=== PATIENT | male | born 1930 | race Caucasian/White ===

== ENCOUNTER 2018-07-28 06:11 | Inpatient (IN) | payer OTHER, BC ==
[~2018-07-28] VITALS: Ht 170.2 cm; Wt 79.4 kg
[~2018-07-28 06:11] MED LIST: ARICEPT 5 MG TAB5 MG PO; COUMADIN 5 MG TA5 M1 PO; EUCERIN CALM I200 M1 TOP; FLOMAX0.4 MG PO; LIDOCAINE PAIN1 EACH TOP; NORVASC5 M1 PO; PHILLIPS' LAXA100 MG PO; PREDNISONE 5 MG5 M1 PO; PROSCAR 5MG TABL5 MG PO
[2018-07-28 09:30] LABS: HEMATOCRIT 42.8 % (42.0-52.0); HEMOGLOBIN 14.4 gm/dL (14.0-18.0); MCH 32.1 pg (26.0-34.0); MCHC 33.5 g/dL (28.0-37.0); MCV 95.9 fL (80.0-100.0); RBC 4.47 mil/uL (4.50-6.00); RDW 16.9 % (10.5-14.5); WBC 6.7 thou/uL (4.0-11.0)
[2018-07-28 09:31] LABS: URINE BILIRUBIN NEGATIVE (Negative); URINE BLOOD TRACE (Negative); URINE CLARITY CLEAR; URINE COLOR YELLOW; URINE GLUCOSE-RANDOM* NEGATIVE (Negative); URINE KETONES NEGATIVE (Negative); URINE LEUKOCYTES-REFLEX NEGATIVE (Negative); URINE NITRITE-REFLEX NEGATIVE (Negative); URINE PROTEIN (DIPSTICK) NEGATIVE (Negative); URINE UROBILINOGEN 0.2 E.U./dl (0.2-1.0)
[2018-07-28 09:40] LABS: ALBUMIN 3.7 g/dL (3.4-5.0); CALCIUM 10.5 mg/dL (8.5-10.1); CREATININE 1.7 mg/dL (0.7-1.3); POTASSIUM 3.9 mmol/L (3.5-5.1)
[2018-07-28 09:42] LABS: INR 2.5; PROTIME 25.6 Seconds (9.3-11.4)
[2018-08-05 09:47] LABS: PROTIME 10.7 Seconds (9.3-11.4)
[2018-08-05 16:15] VITALS: BP 120/83
[2018-08-05 16:30] VITALS: BP 115/73
[2018-08-05 17:00] VITALS: BP 115/73
--- NOTE | 2018-08-05 18:42 | NUR ---
PATIENT ADMITTED TO UNIT FROM PACU POST SURGICAL REPLACEMENT OF RIGHT HIP. HE DENIES PAIN AT THIS TIME. ABDUCTOR PILLOW PLACED TO PREVENT LEG CROSSING. PATIENT IS ALERT ORIENTED X4. RESPIRATIONS ARE NON LABORED. SON WAS IN ROOM WITH PATIENT. WILL CONT TO MONITOR AND ASSIST NEEDED.
[2018-08-05 20:25] VITALS: BP 134/99
--- NOTE | 2018-08-05 21:37 | NUR ---
Assumed care at 1845. Pt resting in bed. Denies pain. Surgical site on right hip CDI. Pt is on 2L NC. VSS. Breathing is unlabored. No sign of perfussion compromise on right leg. Pt AOX4. No identified need at the moment. Will continue to monitor.
[2018-08-05 23:50] VITALS: BP 128/74
[2018-08-06 04:15] VITALS: BP 142/92
[2018-08-06 05:36] LABS: HEMATOCRIT 33.7 % (42.0-52.0); HEMOGLOBIN 11.5 gm/dL (14.0-18.0); MCH 32.6 pg (26.0-34.0); MCHC 34.1 g/dL (28.0-37.0); MCV 95.8 fL (80.0-100.0); RBC 3.51 mil/uL (4.50-6.00); RDW 16.3 % (10.5-14.5); WBC 13.3 thou/uL (4.0-11.0)
[2018-08-06 08:05] VITALS: BP 142/70
[2018-08-06 08:13] VITALS: BP 142/70
--- NOTE | 2018-08-06 12:28 | NUR ---
DISCHARGE PLANNING. PATIENT POST OP FOR RIGHT TOTAL HIP ARTHROPLASTY. POST ACUTE CARE RECOMMENDED AT DISCHARGE ONCE MEDICALLY READY. REFERRAL FAXED TO [facility] PROTOTYPE TECHNICIAN FOR REVIEW. LAUREN AWARE OF PATIENTS DISCHARGE NEEDS AND WILL REVIEW REFERALL. LAUREN TO CONTACT CM ONCE REFERRAL REVIEW COMPLETE. FOLLOWING TO ASSIST WITH DC NEEDS.
[2018-08-06 12:46] VITALS: BP 101/49
--- NOTE | 2018-08-06 14:49 | NUR ---
care of pt assumed this am @ 0700. pt resting quietly and comfortably in bed. pt has denied co pain, no co rt hip pain, no n/v/d and no soa today. pt w/ a healthy appetite for food and fluid. pt completed his 2nd ivf liter bag this early afternoon, w/ good po fluid intake. pt seen by pt (x2) and ot today. pt ambulating w/ x1 sba in hallway and up to chair for ~ 4 hours thus far today. pt w/ adb pillow while in bed. flor avila on. pt's son at mid afternoon visiting. senior suites inquiring about a potential tx of pt later today.
--- NOTE | 2018-08-06 16:01 | O ---
[facility] [place] [address] [address]PERATIVE REPORT Name: L[address]O Room #: 364-P [facility] M.R.#: [id number] Admission: 08/05/18 ������������������ Attend Phys: Immanuel Calderon MD Discharge: ������������������ Date of : 32 Report #: [id number] THIS REPORT FOR: //name// CC: ADEN TRUJILLO Physician staff Immanuel Calderon DATE OF SERVICE: 08/05/2018 PREOPERATIVE DIAGNOSIS: Right hip stage 4 avascular necrosis. POSTOPERATIVE DIAGNOSIS: Right hip stage 4 avascular necrosis. PROCEDURE: Right total hip arthroplasty. SURGEON: Immanuel Calderon MD. ELECTRIC BLASTING CAP ASSEMBLER: Kalina Winters PA-C. INDICATION FOR ELECTRIC BLASTING CAP ASSEMBLER: Throughout the case, extensive retraction and manipulation of the hip was required including dislocation and reduction. This was afforded to me by my orthotic assistant. ANESTHESIA: LMA. IMPLANTS: [employer] size 15 high offset Synergy press fit stem, a size 56 R3 acetabular cup with 2 acetabular screws and a size 40+8 cobalt chrome head. ESTIMATED BLOOD LOSS: 100 mL. COMPLICATIONS: None. SPECIMENS: None. CONDITION UPON LEAVING THE OPERATING ROOM: Stable. INDICATION FOR PROCEDURE: The patient is an 87-year-old gentleman with avascular necrosis of the femoral head. He had femoral head collapse and arthritic change making stage 4 avascular necrosis. After discussion with him, he elected for right total hip arthroplasty. DESCRIPTION OF PROCEDURE: Risks, benefits, alternatives, complications were discussed in detail with the patient included but not limited to risk of anesthesia, risk of damage to nerves, arteries, blood vessels, risk for infection, bleeding, risk for continued hip pain, leg length discrepancy, [facility] [address] [place] [address] OPERATIVE REPORT Name: L[address] M[address]O Room #: 364-P [facility] IN M.R.#: [id number] Admission: 08/05/18 ������������������ Attend Phys: Immanuel Calderon MD Discharge: ������������������ Date of : 31 Report #: [id number] instability and need for reoperation. Informed consent was obtained from the patient. The right hip was appropriately marked in the preoperative holding area. IV Ancef was given for preoperative antibiotics. He was brought to the operating room and placed in the supine position on the operating room table. General anesthesia was induced without complication. He was then placed in the left lateral decubitus position with the right hip uppermost. Right hip and lower extremity were prepped and draped in normal sterile fashion. Timeout was performed properly identifying the patient and procedure as well as the instrumentation and implants. All in the operating room were in agreement. Standard posterior approach to the hip was made with 10 blade through the skin. Dissection was taken down to the fascia with Bovie cautery and a Francisco elevator was used to clean the fascia. Fresh 10 blade was used to make a fascial incision. This was taken proximally and distally with curved Houser scissor. Charnley retractor was placed. Trochanteric bursa was taken down with Bovie cautery. Piriformis tendon was identified, tagged and taken down with Bovie. Short external rotators were also taken down with Bovie cautery. Capsulotomy was made and capsule ends were tagged for later repair. The hip was dislocated. There was an obvious stage 4 avascular necrosis of the femoral head. Femoral neck cut was made 1 cm proximal to lesser trochanter based on preoperative templating and the femoral head was removed. Deep acetabular retractors were placed and the labrum was removed sharply. Pulvinar was removed with Bovie cautery. Acetabulum was sequentially reamed up to a size 56, at which point, there was excellent bleeding cancellous bone. This was trialed with a size 55 cup and found to have a good fit. A final size 56 R3 acetabular cup was placed and seated. Two acetabular screws were placed for backup fixation and a polyethylene liner for a size 40 head was placed. Attention was then turned to the femur. This was reamed and broached up to a size 15, at which point, we found 15 broach was stable. This was trialed with a 40+0 head. Hip was reduced, taken through range of motion, found to have instability posteriorly as well as short leg on the right compared to the left. It was felt we could make up for this with the final implant. Hip was dislocated. The broach was removed and a final size 15 high offset Synergy press fit stem was placed. This was then trialed with a +4 and then a +8 size 40 head. Hip was reduced, taken through range of motion, found to be stable, found to have equal leg lengths. Hip was dislocated one last time and the trial head was removed and final size 40+8 cobalt chrome head was placed. Hip was reduced, taken through range of motion, found to be stable, found to have equal leg lengths. Periarticular injection consisting of morphine, ropivacaine, epinephrine and Toradol was placed around the hip joint capsule. A gram of vancomycin was placed deep in the joint. The capsule and piriformis were repaired with 0 FiberWire. Fascia was closed with 0 Vicryl, skin was closed with 2-0 Vicryl and 3-[address] [address] [address]PERATIVE REPORT Name: L[address] MORILLO Room #: 364-P [facility] IN M.R.#: [id number] Admission: 08/05/18 ������������������ Attend Phys: Immanuel Calderon MD Discharge: ������������������ Date of : 31 Report #: [id number] Dermabond and a KAE dressing was applied. The patient tolerated this procedure well and went to the recovery room under the care of Anesthesia postoperatively. ��������������������������������������������� <ELECTRONICALLY SIGNED> ���������������������������������������� By: Immanuel Calderon MD ��������������������������������������������� 08/06/18 1601 1211 1233 Immanuel Calderon MD /nt
[2018-08-06 19:05] VITALS: BP 149/78
[2018-08-06 23:46] VITALS: BP 149/78
--- NOTE | 2018-08-07 03:09 | NUR ---
ASSUMED CARE OF PATIENT AT 1845. DURING ASSESSMENT WE DISCUSSED PAIN AND USING THE MEDICATION TO STAY AHEAD OF THE PAIN CURVE. PT DRESSING C/D/I. PT WAS IN BED READY TO SLEEP AT 1999. ABUDUCTOR PILLOW PUT IN PLACE. ONLY REQUEST FROM PT WAS A URINAL WITH A LID. HOURLY ROUNDING AND BED IN LOW POSITION.
[2018-08-07 03:42] VITALS: BP 106/54
[2018-08-07 04:40] LABS: HEMATOCRIT 31.3 % (42.0-52.0); HEMOGLOBIN 10.7 gm/dL (14.0-18.0); MCH 32.9 pg (26.0-34.0); MCHC 34.3 g/dL (28.0-37.0); MCV 96.1 fL (80.0-100.0); RBC 3.26 mil/uL (4.50-6.00); RDW 16.2 % (10.5-14.5); WBC 8.9 thou/uL (4.0-11.0)
[2018-08-07 04:41] LABS: INR 1.1; PROTIME 11.2 Seconds (9.3-11.4)
[2018-08-07 07:07] VITALS: BP 137/82
--- NOTE | 2018-08-07 10:38 | NUR ---
chart review, cm visited with pt at bedside. he up in recliner chair. intro to cm, dcp, and transition of care, post acute and hh. pt is a & o x 3, with some forgetfulness, pleasant and [place]. pt reported " live in house 2 steps to enter, have cane, waker, grab bars. don't cook i have meals on wheels. manage own medication in pill box. [facility] and will not return. i [facility] before go home. will need 3 midnight prior to going to skilled rehab, earliest could go tomorrow if ordered for dc. cm team sent updated clinical/referral to [facility] [phone] to call report, fax dc order to [phone]
--- NOTE | 2018-08-07 12:43 | NUR ---
care of pt assumed this am @ ~0700. pt awake, alert and cooperative this am to get out of bed, ambulate to the bthrm and sit up in his chair for breakfast. pt and ot at to work w/ pt this am. pt has denies any co pain to his rt hip area today. pt denies n/v/d, he is a bit concerned about constipation. pt denies soa, on room air. states pt will go to [facility] for rehab after completing 3 night stays post op and the approval/discharge by dr. zuniga. pt made aware of these furture discharge plans.
[2018-08-07 15:00] VITALS: BP 128/60
[2018-08-07] MEDS ORDERED: HYDROCODON-ACE1 EAC7 PO (16:38)
[2018-08-07 20:05] VITALS: BP 120/60
[2018-08-08 04:34] VITALS: BP 139/75
[2018-08-08 05:01] LABS: HEMATOCRIT 31.3 % (42.0-52.0); HEMOGLOBIN 10.8 gm/dL (14.0-18.0); MCH 32.8 pg (26.0-34.0); MCHC 34.5 g/dL (28.0-37.0); MCV 95.2 fL (80.0-100.0); RBC 3.29 mil/uL (4.50-6.00); RDW 16.6 % (10.5-14.5); WBC 8.3 thou/uL (4.0-11.0)
--- NOTE | 2018-08-08 06:38 | NUR ---
Pt. up in the chair at then ambulated to bathroom using walker. Slept intermittently in between going to bathroom. Laxative given yesterday , just passing gas no bm during the night. Right hip incision with KAE dressing intact. Denies any pain. Tolerating RA well , encouraged use of IS and got up 1500 ml. SCD's and wedge abductor in place. Making progress towards care plan goals.
[2018-08-08 07:10] VITALS: BP 167/77
[2018-08-08 07:34] LABS: INR 1.2; PROTIME 12.4 Seconds (9.3-11.4)
[2018-08-08 09:33] VITALS: BP 167/77
--- NOTE | 2018-08-08 14:03 | NUR ---
ASSUMED PATIENT CARE AT 0700. A/O X4. DENIES PAIN. UP WALK WITH PT. PROGRESSING TOWARDS POC GOALS. WILL DC TO SNF AT 1400
--- NOTE | 2018-08-08 16:27 | NUR ---
DISCHARGE NOTE: SW reviewed chart. Pt is medically stable for discharge to [facility] today. space planner coordinated. No additional SW needs identified at this time, but is available to assist should needs arise.
== END 2018-08-08 14:30 | DRG 470 ==
LOC: PRE 06:11 → TBA 06:11 → 3W 08-05 05:30 → TBA 08-05 05:30 → PRE 08-05 06:27 → 3W 08-05 15:43
PROVIDERS: Anesthesiology; ADMIT Orthopaedic Surgery
PROC: 0SR901A Replacement of Right Hip Joint with Metal Synthetic Substitute, Uncemented, Open Approach (ICD-10-PCS; principal; 2018-08-05)
DX: M87.851 Other osteonecrosis, right femur (principal); Z79.899 Other long term (current) drug therapy; Z28.21 Immunization not carried out because of patient refusal
CPT/HCPCS: 10779; 50010; 50101; 50382; 50414; 53000; 53078; 53367; 54118; 56524; 56527; 56528; 56530; 57095; 57103; 62110; 62900; 70005

== ENCOUNTER → 2018-07-30 | Outpatient (CLI) | payer OTHER, BC ==
--- NOTE | 2018-07-30 11:51 | 2DMMODE ---
[facility] [place] [address] 2 D/M-MODE ECHOCARDIOGRAM Name: L[address] M[facility]ILLO [facility]: [id number] ������������� Admission: 07/30/18 ������������� Attend Phys: Jose Roland Discharge: ��� ������������� ��� Date of : 32 Date of Service: 07/30/18 1150 �� Report #: [id number] �������� ��������������������������������������������[id number] THIS REPORT FOR: //name// APPROVED REPORT Study performed: 07/30/2018 10:15:08 EXAM: Comprehensive 2D, Doppler, and color-flow Echocardiogram Patient Location: Out-Patient Room #: Echo lab 2 Status: routine BSA: 1.93 HR: 61 bpm BP: 140/82 mmHg Rhythm: NSR Other Information Study Quality: Adequate Indications Pre-Op Hypertension/HDD 2D Dimensions RVDd: 29.34 mm IVSd: 11.72 (7-11mm) LVOT Diam: 21.97 (18-24mm) LVDd: 53.44 mm PWd: 12.14 (7-11mm) Ascending Ao: 30.29 (22-36mm) LVDs: 36.39 (25-40mm) Aortic Root: 30.04 mm Volumes Left Atrial Volume (Systole) Single Plane 4CH: 73.34 mL Single Plane 2CH: 69.49 mL LA ESV Index: 40.00 mL/m2 Aortic Valve AoV Peak Naga.: 1.13 m/s AO Peak Gr.: 5.14 mmHg LVOT Max P.70 mmHg LVOT Max V: 0.82 m/s TRACY Vmax: 2.75 cm2 Mitral Valve E/A Ratio: 0.7 MV Decel. Time: 403.[address] [facility] [address] [place] [address] 2 D/M-MODE ECHOCARDIOGRAM Name: L[address]O Room #: [facility]#: [id number] ������������� Admission: 07/30/18 ������������� Attend Phys: Jose Roland Discharge: ��� ������������� ��� Date of : 32 Date of Service: 07/30/18 1150 �� Report #: [id number] �������� ��������������������������������������������[id number] E Max Naga.: 0.56 m/s MV A Naga.: 0.84 m/s MV PHT: 117.02 ms IVRT: 193.77 ms Pulmonary Valve PV Peak Naga.: 0.80 m/s PV Peak Gr.: 2.59 mmHg Pulmonary Vein P Vein S: 0.28 m/s P Vein A: 0.20 m/s P Vein D: 0.17 m/s P Vein A Dur.: 138.4 msec P Vein S/D Ratio: 1.65 Tricuspid Valve TR Peak Naga.: 2.36 m/s TR Peak Gr.: 22.23 mmHg PA Pressure: 22.00 mmHg Left Ventricle The left ventricle is normal size. There is normal LV segmental wall motion. Mild concentric left ventricular hypertrophy. The left ventricular systolic function is normal. The left ventricular ejection fraction is within the normal range. LVEF is 50-55%. Grade I - abnormal relaxation pattern. Right Ventricle The right ventricle is normal size. The right ventricular systolic function is normal. Atria Left atrium is dilated. The right atrium size is normal. Aortic Valve The aortic valve is normal in structure. Mild aortic regurgitation. There is no aortic valvular stenosis. Mitral Valve The mitral valve is normal in structure. There is no mitral valve regurgitation noted. No evidence of mitral valve stenosis. Tricuspid Valve The tricuspid valve is normal in structure. There is trace to mild tricuspid regurgitation. Estimated PAP 22 mmHg plus the right atrial pressure. There is no pulmonary hypertension. Pulmonic Valve [address] [address] 2 D/M-MODE ECHOCARDIOGRAM Name: L[address] Room #: REG Iftikhar#: [id number] ������������� Admission: 07/30/18 ������������� Attend Phys: Jose Roland Discharge: ��� ������������� ��� Date of : 32 Date of Service: 07/30/18 1150 �� Report #: [id number] �������� ��������������������������������������������[id number] The pulmonary valve is normal in structure. Trace pulmonic regurgitation. Great Vessels The aortic root is normal in size. IVC is not well visualized. Pericardium There is no pericardial effusion. <Conclusion> The left ventricle is normal size. LVEF is 50-55%. Left atrium is dilated. The aortic valve is normal in structure. Mild aortic regurgitation. The mitral valve is normal in structure. The tricuspid valve is normal in structure. There is trace to mild tricuspid regurgitation. Estimated PAP 22 mmHg plus the right atrial pressure. There is no pulmonary hypertension. The pulmonary valve is normal in structure. Trace pulmonic regurgitation. The aortic root is normal in size. There is no pericardial effusion. ��������������������������������������������� <ELECTRONICALLY SIGNED> ���������������������������������������� By: Jose Hernandez MD ��������������������������������������������� 07/30/18 1150 1150 1150 Jose Hernandez MD /INF
== END ==
LOC: CV 06:27
DX: I35.1 Nonrheumatic aortic (valve) insufficiency (principal); E78.5 Hyperlipidemia, unspecified; I10 Essential (primary) hypertension

== ENCOUNTER → 2020-11-09 | Outpatient (CLI) | payer OTHER, BC ==
[~2020-11-09] MED LIST changes: +HYDROCODON-ACE1 EAC7 PO
== END ==
LOC: SJCVCIMAG 08:49
PROVIDERS: ATTEND Nuclear Medicine Nuclear Cardiology
DX: I70.202 Unspecified atherosclerosis of native arteries of extremities, left leg (principal); I48.20 Chronic atrial fibrillation, unspecified; I65.23 Occlusion and stenosis of bilateral carotid arteries; I12.9 Hypertensive chronic kidney disease with stage 1 through stage 4 chronic kidney disease, or unspecified chronic kidney disease; N18.9 Chronic kidney disease, unspecified; F03.90 Unspecified dementia, unspecified severity, without behavioral disturbance, psychotic disturbance, mood disturbance, and anxiety; E78.5 Hyperlipidemia, unspecified; Z79.899 Other long term (current) drug therapy